=== PATIENT | male | born 1980 | race Hispanic/Latino ===

== ENCOUNTER 2021-07-14 21:46 | Emergency (ER) | payer OTHER ==
[~2021-07-14] VITALS: Ht 182.9 cm; Wt 118.4 kg
[2021-07-14] MEDS ORDERED: LIDOCAINE HCL 400MG/20ML VIAL ONE (22:22)
[2021-07-14] MEDS ORDERED: TETANUS/DIPHTHERIA TOXOID [ADULT] 0.5 ML VIAL IM ONE (22:30)
[2021-07-14] MEDS ORDERED: LIDOCAINE HCL 1% 20 ML VIAL INJ SCH (22:30)
[2021-07-14] MEDS ORDERED: ACETAMINOPHEN 500 MG TABLET PO ONE (22:30)
[2021-07-14 22:54] VITALS: BP 122/85
[2021-07-14] MEDS ORDERED: CEPH500B PO (23:14)
[2021-07-14] MEDS ORDERED: CEPHALEXIN 500 MG CAPSULE PO ONE (23:30)
== END 2021-07-14 23:29 | disposition home or self-care (01) ==
LOC: EDH 21:46
DX: S01.81XA Laceration without foreign body of other part of head, initial encounter (principal); X58.XXXA Exposure to other specified factors, initial encounter; Y93.89 Activity, other specified; Y92.89 Other specified places as the place of occurrence of the external cause; Y99.8 Other external cause status
CPT/HCPCS: 12013; 90471; 90714; 99283; J3490